=== PATIENT | male | born 1985 | race Caucasian/White ===

== ENCOUNTER 2018-11-20 14:06 | Emergency (ER) | payer MEDICAID, SELFPAY ==
[2018-11-20 14:06] VITALS: BP 108/62; PULSE 88; RESP 18; O2SAT 97
[2018-11-20 14:22] VITALS: BP 108/62; PULSE 84; RESP 18; TEMP 36.9; O2SAT 95; BMI 28.1
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
[2018-11-20 15:06] VITALS: BP 109/63
[2018-11-20] MEDS: morphine 8 MG/ML Syringe 6 MG IV (15:31)
[2018-11-20] MEDS: Ondansetron 4 MG/2 ML Vial IV (15:31)
[2018-11-20 16:00] VITALS: BP 120/80; PULSE 85; RESP 16; O2SAT 100
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
== END 2018-11-20 17:16 | disposition home or self-care (01) ==
PROVIDERS: Emergency Provider Emergency Medicine; Family Provider Nurse Practitioner Family; PCP Nurse Practitioner Family
DX: S60.511A Abrasion of right hand, initial encounter (principal); S89.91XA Unspecified injury of right lower leg, initial encounter; V03.90XA Pedestrian on foot injured in collision with car, pick-up truck or van, unspecified whether traffic or nontraffic accident, initial encounter; Y93.9 Activity, unspecified; Y92.9 Unspecified place or not applicable; Y99.9 Unspecified external cause status; Z72.0 Tobacco use
CPT/HCPCS: 70450; 71260; 72125; 73130; 73502; 73564; 73590; 74177; 96374; 96375; 99285; J7030; Q9967; A4216; J2405

== ENCOUNTER 2019-02-15 15:52 | Emergency (ER) | payer SELFPAY ==
[2019-02-15 15:54] VITALS: BP 123/78; PULSE 107; RESP 12; TEMP 36.3; O2SAT 96; BMI 22.5
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
[2019-02-15 18:06] VITALS: BP 120/78; PULSE 86; RESP 16; O2SAT 100
[2019-02-15] MEDS: Diphth,Pertuss(Acell),Tet Vac 0.5 ML Vial IM (18:15)
[2019-02-15] MEDS: Cephalexin 250 MG Capsule 500 MG PO (18:16)
== END 2019-02-15 18:38 | disposition home or self-care (01) ==
LOC: ED 18:30
PROVIDERS: Emergency Provider Emergency Medicine; Referring Provider Nurse Practitioner Family
DX: L03.116 Cellulitis of left lower limb (principal); M79.89 Other specified soft tissue disorders; S80.812A Abrasion, left lower leg, initial encounter; S80.811A Abrasion, right lower leg, initial encounter; X58.XXXA Exposure to other specified factors, initial encounter; Y93.01 Activity, walking, marching and hiking; Y92.821 Forest as the place of occurrence of the external cause; Y99.9 Unspecified external cause status; Z23 Encounter for immunization; M54.9 Dorsalgia, unspecified; R51 Headache; Z72.0 Tobacco use
CPT/HCPCS: 90471; 90715; 99283

== ENCOUNTER 2019-02-20 07:45 | Emergency (ER) | payer SELFPAY ==
[2019-02-20 07:45] VITALS: BP 105/69; PULSE 77; RESP 18; TEMP 37.2; O2SAT 98; BMI 24.7
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
--- NOTE | 2019-02-20 08:03 | VDLE_ITS ---
Reason For Study: swelling Procedure LEFT Exam performed portable in ED. GSV is normal. The exam was diagnostic. CFV is compressible, spontaneous, phasic, A preliminary report was called and/or faxed competent, and demonstrates normal to Dr. Hart. augmentation. FV is compressible, spontaneous, phasic, competent and demonstrates normal augmentation. POP V is compressible, spontaneous, phasic, competent and demonstrates normal augmentation. T/P Trunk is compressible. PTV is compressible. LT PerV is compressible. Interpretation Summary There is no evidence of left lower extremity deep vein thrombosis. Left great saphenous vein appears patent and compressible segmentally. Ordering Physician: Yanni Hart Performed By: Costa Holland RVT
--- NOTE | 2019-02-20 08:05 | ED.DCSUM_ITS ---
History of Present Illness Chief Complaint: Lower Extremity Injury Informant: Patient Onset: Days - 4 Context: Gradual Onset Timing: Continuous Current Severity: Severe Maximum Severity: Severe Narrative: Patient is a 33-year-old male with history of achalasia and arrhythmia stenting with worsening left lower leg and ankle pain. Patient was evaluated in our ED 2 days ago where he was diagnosed with cellulitis of his left lower leg. Patient started on Keflex at this time. Patient states he has had 4 doses of his Keflex. Last night he went to work where he does a lot of standing and walking. He notes he had worsening pain as well subjective fever, nausea and vomiting. The pain is continued to worsen so he came back to the emergency room. Patient denies any trauma to his lower extremity. Denies any history of blood clots, pulmonary embolism, DVT. He denies any associated chest pain or shortness of breath. States the pain is worse especially with any slight movement of his ankle (especially flexion) and walking. History of gout. He admits to tobacco use denies any alcohol or illicit drug use. Past Medical History - Allergies and Home Meds Allergies/Adverse Reactions: Allergies No Known Allergies Allergy (Verified 02/20/19 07:48) Primary Care Physician: Blanca Zendejas [Primary Care Provider] - Past Medical History: - - Achalasia, arrhythmia Surgical History: noncontributory Smoking Status: Current every day smoker Review of Systems All systems negative except as indicated General: Reports: Chills, Malaise, Subjective - Fever, Sweats Gastrointestinal: Reports: Nausea, Vomiting Musculoskeletal: Reports: Arthralgias - Left ankle, Extremity Pain - Left ankle and lower leg Skin: Reports: Rash - Redness at left ankle Physical Exam Vital Signs/Narrative: Vital Signs Temp Pulse Resp BP Pulse Ox 02/20/19 07:45 98.9 F 77 18 105/69 98 Inital Vital Signs reviewed: Yes General: Well nourished, Well developed, No Acute Distress Head: Normocephalic, Atraumatic Eyes: Perrl, EOMI ENT: Moist mucous membranes, No rhinorrhea Neck: Supple, Nontender Cardiovascular: Regular rate, Regular rhythm, No murmurs Respiratory: No distress, CTA bilaterally, Chest nontender Abdomen: Soft, Nontender, Nondistended, Normal bowel sounds Back: Nontender, Normal Inspection Extremities: Tenderness - Diffusely at the left ankle/distal left leg with even slight palpation or short arc range of motion in all directions but most pronounced with flexion and extension, Edema, - - Sweet test normal, No crepitus, compartments are soft, no asher tenderness . Negative for: Calf Tenderness Neurological: Alert, Oriented x3, Cranial nerves II-XII grossly intact, Normal Strength, Normal Sensation Psychological: Normal affect, Normal Mood Diagnostic/Tx/Re-eval Diagnostic Data Ankle X-Ray 02/20/19 08:02 IMPRESSION: No acute abnormality is seen. Electronically Signed: Sg Pemberton, at 9:08 EDT , Service support , Laboratory Results - last 24 hr 02/20/19 02/20/19 08:40 08:40 WBC 8.6 RBC 4.13 L Hgb 13.1 Hct 38.6 L MCV 93.5 MCH 31.7 MCHC 33.9 RDW Std Deviation 41.1 RDW Coeff of Heidi 11.9 Plt Count 181 MPV 10.2 Immature Gran % (Auto) 0.200 Neut % (Auto) 72.8 H Lymph % (Auto) 14.8 L [place] % (Auto) 7.1 Eos % (Auto) 4.4 Baso % (Auto) 0.7 Absolute Neuts (auto) 6.3 Absolute Lymphs (auto) 1.28 Nucleated RBC % 0 ESR 3 Sodium 143 Potassium 3.9 Chloride 106 Carbon Dioxide 31.0 Anion Gap 6 BUN 11 Creatinine 1.06 Estim Creat Clear Calc 75.12 Est GFR (MDRD) Af Amer 102 Est GFR (MDRD) Non-Af 84 BUN/Creatinine Ratio 10.4 Glucose 102 Uric Acid 5.2 Calcium 8.8 C-React Prot Ext Range 3.80 H - Medical Decision Making Evaluated for worsening atraumatic left ankle pain, redness and swelling. Patient does have some short arc range of motion but I do not suspect septic joint. Gout is a possibility as well as cellulitis. Patient is currently on Keflex. Will add Bactrim as well. Work-up is largely unremarkable in the emergency room. He is neurovascularly intact. Inflammatory markers mildly elevated but not significantly. Patient treated with Toradol does have improvement of his pain. Discussed the case with podiatry, Dr. Martins. She recommends adding a course of steroids as well as antibiotics. Time I am not concerned for compartment syndrome, septic arthritis or necrotizing fasciitis. Patient is placed in an Aircast will follow-up outpatient with podiatry. He is given a work note for tomorrow. Patient is counseled on signs and symptoms requiring return to emergency room. He verbalizes agreement understand this plan. Discharged home in stable condition. ED Disposition - Plan for ED Patient: Disposition: Home or Assisted Living Diagnosis: Acute left ankle pain Instructions: Gouty Arthritis, Cellulitis Prescriptions: Smz/Tmp Ds [Bactrim Ds] 1 tab PO BID #14 tab Prescription Printed Ibuprofen [Motrin] 600 mg PO Q8H PRN PRN #20 tab PRN Reason: Pain Prescription Printed Prednisone 40 mg PO DAILY #8 tab Prescription Printed Referrals: [facility] Martine,Blanca Elena [Primary Care Provider] - Charo Gould [STAFF PHYSICIAN] - Additional Instructions: Please take all the medications prescribed to you. Return if you have worsening symptoms especially fever, spreading redness or inability to walk. Is not clear at this time if this is an infection that needs further antibiotics, gout or another pathology. This is why it is important that you follow-up with the lead informatica developer in the next day or 2.
[2019-02-20 08:33] VITALS: BP 95/76; PULSE 68; RESP 16; TEMP 36.9; O2SAT 99
[2019-02-20] MEDS: Ketorolac 15 MG/ML Vial IV (08:37)
[2019-02-20 08:49] LABS: Absolute Lymphocyte Count 1.28 X10^3/uL (0.83-4.51); Absolute Neutrophil Count 6.3 X10^3/uL (2.0-7.7); Basophil# 0.06 X10^3/uL; Basophil% 0.7 % (0-1); Eosinophil# 0.38 X10^3/uL; Eosinophils% 4.4 % (0-5); Hematocrit 38.6 % (40-54); Hemoglobin 13.1 g/dL (13.0-16.5); Lymphocyte # 1.28 X10^3/ul (4.0); Lymphocyte % 14.8 % (19-41); Mean Corp Hgb Conc 33.9 g/dL (32-36); Mean Corpuscular Hgb 31.7 pg (27.0-32.0); Mean Corpuscular Volume 93.5 fL (80-94); Mean Platelet Vol. 10.2 fl (6.2-12.0); Monocyte# 0.61 X10^3/uL; Monocyte% 7.1 % (0-10); NRBC Flagged by Analyzer 0 % (0-5); Neutrophil # 6.29 X10^3/uL (2.7-7.7); Neutrophil % 72.8 % (47-70); Platelet Count 181 K/mm3 (150-450); RBC Distribution Width CV 11.9 % (11.6-14.6); RBC Distribution Width SD 41.1 fl (35.1-43.9); Red Blood Count 4.13 M/mm3 (4.6-6.2); White Blood Count 8.6 K/mm3 (4.4-11.0)
[2019-02-20 09:05] LABS: Anion Gap 6 (5-15); BUN 11 mg/dL (7-18); BUN/Creat Ratio 10.4 RATIO (10-20); Calcium,Total 8.8 mg/dL (8.5-10.1); Chloride 106 mmol/L (98-107); Creatinine, Serum 1.06 mg/dL (0.70-1.30); EST Glomerular Filtration Rate 84 mL/min (>60); Erythrocyte Sedimentation Rate 3 mm/hr (0-15); Est Glom Filt Rate - Afr Amer 102 mL/min (>60); Estimated Creatinine Clearance 75.12 ml/min; Glucose 102 mg/dL (74-106); Potassium 3.9 mmol/L (3.5-5.1); Sodium Level 143 mmol/L (136-145); Uric Acid 5.2 mg/dL (3.5-7.2)
[2019-02-20] MEDS: predniSONE 20 MG Tablet 60 MG PO (09:37)
[2019-02-20 10:15] VITALS: BP 126/77; PULSE 62; RESP 15; O2SAT 98
== END 2019-02-20 10:16 | disposition home or self-care (01) ==
PROVIDERS: Emergency Provider Emergency Medicine
DX: M25.572 Pain in left ankle and joints of left foot (principal); M25.472 Effusion, left ankle; M79.89 Other specified soft tissue disorders; R11.2 Nausea with vomiting, unspecified; M10.9 Gout, unspecified; K22.0 Achalasia of cardia; F17.200 Nicotine dependence, unspecified, uncomplicated; Z79.899 Other long term (current) drug therapy
CPT/HCPCS: 73610; 80048; 84550; 85025; 85652; 86140; 93971; 96374; 99284; A4216

== ENCOUNTER 2019-12-16 01:08 | Emergency (ER) | payer MEDICAID, SELFPAY ==
[2019-12-16 01:10] VITALS: BP 126/106; PULSE 68; RESP 16; TEMP 36.1; O2SAT 100; BMI 23.8
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
[2019-12-16] MEDS: Ondansetron ODT 4 MG Tablet PO (01:56)
[2019-12-16 03:50] VITALS: RESP 16
== END 2019-12-16 03:51 | disposition home or self-care (01) ==
PROVIDERS: Emergency Provider Student in an Organized Health Care Education/Training Program
DX: S06.0X0A Concussion without loss of consciousness, initial encounter (principal); S01.01XA Laceration without foreign body of scalp, initial encounter; Y04.2XXA Assault by strike against or bumped into by another person, initial encounter; Y93.9 Activity, unspecified; Y92.9 Unspecified place or not applicable; Y99.9 Unspecified external cause status; F17.200 Nicotine dependence, unspecified, uncomplicated
CPT/HCPCS: 12002; 70450; 99283

== ENCOUNTER 2020-01-07 18:37 | Emergency (ER) | payer MEDICAID, SELFPAY ==
[2020-01-07 18:38] VITALS: BP 106/74; PULSE 86; RESP 20; TEMP 36.4; O2SAT 97; BMI 23.5
[2020-01-07 19:56] VITALS: BP 106/74; PULSE 86; RESP 16; TEMP 36.4; O2SAT 97
== END 2020-01-07 19:57 | disposition left against medical advice (07) ==
LOC: ED 19:43
PROVIDERS: Emergency Provider Emergency Medicine
DX: R06.02 Shortness of breath (principal)

== ENCOUNTER 2020-05-24 21:15 | Emergency (ER) | payer MEDICAID, SELFPAY ==
[2020-05-24 21:16] VITALS: BP 125/65; PULSE 81; RESP 18; TEMP 36.4; O2SAT 95; BMI 23.0
--- NOTE | 2020-05-24 21:31 | ED.DCSUM_ITS ---
History of Present Illness Chief Complaint: Abd Pain Informant: Patient Onset: Today Current Severity: Mild Maximum Severity: Moderate Narrative: Patient presents with nausea and vomiting. Patient states he felt well earlier in the day. Tonight after eating dinner he became nauseated and developed upper abdominal pain. He states he went outside where it was cool and vomited. The first 2 episodes of emesis he regurgitated what he had eaten. The third episode of vomiting was blood. He reports only mild nausea at this time. He states he did get sweaty and clammy. He denies any significant past medical history. He denies any excessive use of aspirin or known history of ulcer disease. Past Medical History - Allergies and Home Meds Allergies/Adverse Reactions: Allergies No Known Allergies Allergy (Verified 05/24/20 21:18) Primary Care Physician: Care Physician,No Primary [Primary Care Provider] - Past Medical History: None Surgical History: noncontributory Smoking Status: Current every day smoker Review of Systems General: Denies: Chills, Fever Eyes: Denies: Visual changes - bilaterally ENT: Denies: Bilateral ear pain Cardiovascular: Denies: Chest pain Respiratory: Denies: Dyspnea, Cough Gastrointestinal: Reports: Abdominal pain, Nausea, Vomiting, - - Hematemesis Genitourinary: Denies: Dysuria Musculoskeletal: Denies: Swelling, Extremity Pain Skin: Denies: Rash Hematologic: Denies: Easy bruising, Easy bleeding Allergy: Denies: Uticaria Physical Exam Vital Signs/Narrative: Vital Signs Temp Pulse Resp BP Pulse Ox 05/24/20 21:16 97.6 F L 81 18 125/65 H 95 Inital Vital Signs reviewed: Yes General: Well nourished, Well developed Head: Normocephalic ENT: Moist mucous membranes Neck: Supple Cardiovascular: Regular rate, Regular rhythm Respiratory: No distress, CTA bilaterally Abdomen: Soft, Tender - Minimal epigastric tenderness. No guarding or rebound. Skin: Normal color Neurological: Alert, Oriented x3 Psychological: Normal affect Diagnostic/Tx/Re-eval Laboratory Results 05/24/20 05/24/20 05/24/20 21:45 21:45 21:45 WBC 16.3 H RBC 5.47 Hgb 17.3 H Hct 51.1 MCV 93.4 MCH 31.6 MCHC 33.9 RDW Std Deviation 41.8 RDW Coeff of Heidi 12.1 Plt Count 242 MPV 10.5 Immature Gran % (Auto) 0.400 Neut % (Auto) 84.4 H Lymph % (Auto) 5.0 L [place] % (Auto) 8.6 Eos % (Auto) 1.2 Baso % (Auto) 0.4 Absolute Neuts (auto) 13.8 H Absolute Lymphs (auto) 0.81 L Nucleated RBC % 0 PT 12.8 INR 1.0 APTT 20.4 L Sodium 139 Potassium 4.7 Chloride 105 Carbon Dioxide 28.0 Anion Gap 6 BUN 21 H Creatinine 1.27 Estim Creat Clear Calc 64.09 Est GFR (MDRD) Af Amer 82 Est GFR (MDRD) Non-Af 68 BUN/Creatinine Ratio 16.5 Glucose 103 Calcium 9.4 Total Bilirubin 0.60 Direct Bilirubin 0.14 AST 22 ALT 26 Alkaline Phosphatase 95 Total Protein 8.2 Albumin 4.3 Globulin 3.9 Lipase 72 L - Medical Decision Making Patient is given a liter IV fluids, Zofran, and Protonix. Blood work is reviewed. Patient does have an elevated white count which I suspect is reaction from his vomiting episode. Hemoglobin is actually high. BUN is only minimally elevated. My suspicion is that he has a small More-Jones tear from his vomiting as the first 2 episodes of vomiting did not contain any blood. Patient will be given antacid medication along with nausea meds for home. He will be referred to surgery for follow-up for scope if not improving. ED Disposition - Plan for ED Patient: Disposition: Home or Assisted Living Diagnosis: Vomiting, More-Jones tear Instructions: ED Vomiting (Adult), Mroe-Jones Tear Prescriptions: Omeprazole [Prilosec] 20 mg PO DAILY #30 cap Transmission Status: Pending to [facility] Ondansetron [Zofran Odt] 4 mg PO Q8H PRN PRN #10 tab PRN Reason: Nausea Transmission Status: Pending to [facility] Referrals: Jonathan Wallace MD [STAFF PHYSICIAN] - As Needed Additional Instructions: If you note continued pain, please follow-up with surgery as listed for possible scope to evaluate the lining of your stomach.
[2020-05-24 21:49] LABS: Absolute Lymphocyte Count 0.81 X10^3/uL (0.83-4.51); Absolute Neutrophil Count 13.8 X10^3/uL (2.0-7.7); Basophil# 0.06 X10^3/uL; Basophil% 0.4 % (0-1); Eosinophil# 0.19 X10^3/uL; Eosinophils% 1.2 % (0-5); Hematocrit 51.1 % (40-54); Hemoglobin 17.3 g/dL (13.0-16.5); Lymphocyte # 0.81 X10^3/ul (4.0); Mean Corp Hgb Conc 33.9 g/dL (32-36); Mean Corpuscular Hgb 31.6 pg (27.0-32.0); Mean Corpuscular Volume 93.4 fL (80-94); Mean Platelet Vol. 10.5 fl (6.2-12.0); Monocyte% 8.6 % (0-10); NRBC Flagged by Analyzer 0 % (0-5); Neutrophil # 13.79 X10^3/uL (2.7-7.7); Neutrophil % 84.4 % (47-70); Platelet Count 242 K/mm3 (150-450); RBC Distribution Width CV 12.1 % (11.6-14.6); RBC Distribution Width SD 41.8 fl (35.1-43.9); Red Blood Count 5.47 M/mm3 (4.6-6.2); White Blood Count 16.3 K/mm3 (4.4-11.0)
[2020-05-24] MEDS: Ondansetron 4 MG/2 ML Vial IV (22:03)
[2020-05-24] MEDS: 0.9% Normal Saline 1,000 ML 1000 ML IV (22:03)
[2020-05-24 22:07] LABS: Prothrombin Time (Protime)PT. 12.8 SECONDS (11.7-14.9)
[2020-05-24 22:12] LABS: Partial Thromboplast Time 20.4 Seconds (24.1-36.2)
[2020-05-24 22:13] LABS: AST(SGOT) 22 U/L (15-37); Alanine Aminotransfer ALT/SGPT 26 U/L (16-61); Albumin, Serum 4.3 g/dL (3.2-5.0); Alkaline Phosphatase 95 U/L (45-117); Anion Gap 6 (5-15); BUN 21 mg/dL (7-18); BUN/Creat Ratio 16.5 RATIO (10-20); Bilirubin, Direct 0.14 mg/dL (0.00-0.30); Calcium,Total 9.4 mg/dL (8.5-10.1); Chloride 105 mmol/L (98-107); Creatinine, Serum 1.27 mg/dL (0.70-1.30); EST Glomerular Filtration Rate 68 mL/min (>60); Est Glom Filt Rate - Afr Amer 82 mL/min (>60); Estimated Creatinine Clearance 64.09 ml/min; Globulin 3.9 g/dL (2.2-4.2); Glucose 103 mg/dL (74-106); Lipase 72 U/L (73-393); Potassium 4.7 mmol/L (3.5-5.1); Protein, Total 8.2 g/dL (6.4-8.2); Sodium Level 139 mmol/L (136-145)
[2020-05-24 22:44] VITALS: BP 100/65; PULSE 85; RESP 15; O2SAT 100
[2020-05-24 22:48] VITALS: BP 100/65; PULSE 80; RESP 15; O2SAT 100
== END 2020-05-24 23:01 | disposition home or self-care (01) ==
PROVIDERS: Emergency Provider Emergency Medicine
DX: R11.2 Nausea with vomiting, unspecified (principal); K22.6 Gastro-esophageal laceration-hemorrhage syndrome; R10.10 Upper abdominal pain, unspecified; F17.200 Nicotine dependence, unspecified, uncomplicated
CPT/HCPCS: 80048; 80076; 83690; 85025; 85610; 85730; 96361; 96365; 96375; 99284; J7030; A4216; J2405

== ENCOUNTER 2021-09-02 04:36 | Emergency (ER) | payer MEDICAID, SELFPAY ==
[2021-09-02 04:37] VITALS: BP 116/73; PULSE 75; RESP 16; TEMP 36.8; O2SAT 96; BMI 25.2
[2021-09-02] MEDS: Fluorescein 1 MG STRIP 1 STRIP EACH EYE (05:05)
[2021-09-02] MEDS: Tetracaine 0.5% Ophthalmic Bottle 1 DRP EACH EYE (05:05)
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
[2021-09-02] MEDS: Erythromycin Base 1 OPTH.TUBE 1 APPLIC EACH EYE (05:43)
[2021-09-02] MEDS: oxyCODONE 5 MG Tablet 10 MG PO (05:43)
== END 2021-09-02 05:47 | disposition home or self-care (01) ==
PROVIDERS: Emergency Provider Emergency Medicine; Visit Provider Emergency Medicine
DX: S05.01XA Injury of conjunctiva and corneal abrasion without foreign body, right eye, initial encounter (principal); S05.02XA Injury of conjunctiva and corneal abrasion without foreign body, left eye, initial encounter; X58.XXXA Exposure to other specified factors, initial encounter; Y99.0 Civilian activity done for income or pay; F17.210 Nicotine dependence, cigarettes, uncomplicated
CPT/HCPCS: 99282

== ENCOUNTER → 2022-03-02 | Outpatient (CLI) | payer MEDICAID, SELFPAY ==
[2022-03-02 12:18] LABS: Absolute Lymphocyte Count 2.19 X10^3/uL (0.83-4.51); Absolute Neutrophil Count 4.2 X10^3/uL (2.0-7.7); Basophil# 0.07 X10^3/uL; Basophil% 0.9 % (0-1); Eosinophil# 0.41 X10^3/uL; Eosinophils% 5.4 % (0-5); Hematocrit 45.6 % (40-54); Lymphocyte # 2.19 X10^3/ul (0.83-4.51); Lymphocyte % 29.1 % (19-41); Mean Corp Hgb Conc 32.9 g/dL (32-36); Mean Corpuscular Hgb 31.9 pg (27.0-32.0); Mean Platelet Vol. 11.2 fl (6.2-12.0); Monocyte# 0.57 X10^3/uL; Monocyte% 7.6 % (0-10); NRBC Flagged by Analyzer 0 % (0-5); Neutrophil # 4.24 X10^3/uL (2.7-7.7); Neutrophil % 56.3 % (47-70); Platelet Count 226 K/mm3 (150-450); RBC Distribution Width CV 12.7 % (11.6-14.6); RBC Distribution Width SD 45.1 fl (35.1-43.9); White Blood Count 7.5 K/mm3 (4.4-11.0)
[2022-03-02 13:33] LABS: ALB/GLOB Ratio 1.1 RATIO (0.9-2.4); AST(SGOT) 28 U/L (15-37); Alanine Aminotransfer ALT/SGPT 38 U/L (16-61); Albumin, Serum 4.1 g/dL (3.2-5.0); Alkaline Phosphatase 94 U/L (45-117); Anion Gap 6 (5-15); BUN 14 mg/dL (7-18); BUN/Creat Ratio 11.2 RATIO (10-20); Chloride 104 mmol/L (98-107); Cholesterol 201 mg/dL (200); Creatinine, Serum 1.25 mg/dL (0.70-1.30); EST Glomerular Filtration Rate 68 mL/min (>60); Est Glom Filt Rate - Afr Amer 83 mL/min (>60); Globulin 3.9 g/dL (2.2-4.2); Glucose 85 mg/dL (74-106); High Density Lipoprotein 72 mg/dL; Potassium 4.8 mmol/L (3.5-5.1); Sodium Level 140 mmol/L (136-145); Thyroid Stim Hormone (TSH) 3.05 uIU/mL (0.358-3.74); Triglycerides 42 mg/dL; Very Low Density Lipoprotein 8 mg/dL (5-40)
== END | disposition home or self-care (01) ==
LOC: BIMLAB 09:00
PROVIDERS: PCP Nurse Practitioner Family; Referring Provider Nurse Practitioner Family; Visit Provider Nurse Practitioner Family
DX: Z00.00 Encounter for general adult medical examination without abnormal findings (principal)
CPT/HCPCS: 36415; 80053; 80061; 84443; 85025

== ENCOUNTER → 2022-03-23 | Outpatient (CLI) | payer MEDICAID, SELFPAY ==
--- NOTE | 2022-03-23 13:48 | STRESSREP ---
Stress Test Report Date: 03-23-2022 Procedure: Exercise tolerance test Indications: Chest pain Consent: Per the patient Procedure: The patient exercised on a Zakc protocol for 9 minutes and 17 seconds completing Stage III and 17 seconds of Stage IV achieving a peak heart rate of 160 bpm (87% predicted maximal heart rate) with a resting blood pressure of 98/64 mmHg and a peak blood pressure 140/70 mmHg and a peak MET capacity of approximately 11 MET's. The baseline ECG demonstrated normal sinus rhythm. The peak exercise ECG demonstrated no obvious ECG changes. There were no cardiac dysrhythmias pretest, during exercise, or recovery. The functional capacity was considered good. The patient had no complaint of chest discomfort during exercise or recovery. The examination was discontinued secondary to dyspnea; leg discomfort; stabbing pain . Impression: 1. Technically adequate (percent predicted maximal heart rate greater than 85%) exercise tolerance test 2. Peak exercise ECG with no obvious ECG changes 3. There were no cardiac dysrhythmias during exercise or recovery This note was generated with [employer] software. It may contain incorrect words, spelling, and punctuation that were not noted in checking the note before signing.
== END | disposition home or self-care (01) ==
LOC: CVS 11:58
PROVIDERS: PCP Nurse Practitioner Family; Referring Provider Nurse Practitioner Family; Visit Provider Nurse Practitioner Family
DX: R07.9 Chest pain, unspecified (principal)
CPT/HCPCS: 93017

== ENCOUNTER 2022-08-14 22:49 | Emergency (ER) | payer MEDICAID, SELFPAY ==
[2022-08-14 22:51] VITALS: BP 119/89; PULSE 89; RESP 18; TEMP 36.1; O2SAT 98; BMI 23.9
--- NOTE | 2022-08-14 23:34 | EDS_ITS ---
HPI History of Present Illness Chief Complaint: Back Narrative Narrative: 37-year-old male presenting with left hip and left gluteal muscle spasm. He states that he played football today and while he was running he noted that it became very tight. He states he sat down for 20 minutes and the symptoms resolved. He did not have any problems throughout the day. He states that when he laid down to sleep tonight it went into spasm and it hurts from the left lower back down the side of his leg and gluteal region to the posterior thigh. He states he was unable to sleep. Denies any direct trauma. No loss of bladder bowel control no saddle anesthesia paresthesia. [facility] Medical History Achalasia Bipolar disorder Chest pain Erectile dysfunction PTSD (post-traumatic stress disorder) Home Medications sildenafil 50 mg tablet 50 mg PO DAILY PRN sexual activity #30 tabs 07/30/22 [Rx Last Taken Unknown] naproxen 500 mg tablet (Naprosyn) 500 mg PO BID PRN pain #20 tabs 08/14/22 [Rx Last Taken Unknown] tizanidine 4 mg capsule 4 mg PO Q8H PRN muscle spasticity #14 caps 08/14/22 [Rx Last Taken Unknown] Allergy/AdvReac Type Severity Reaction Status Date / Time No Known Allergies Allergy Verified 08/14/22 22:50 Family History Mother Cervical cancer Depression Father Depression Diabetes Myocardial infarction, Onset Age: 35 Other Melanoma Social History Smoking Status: Current every day smoker tobacco type: cigarettes alcohol intake: never substance use type: marijuana ROS ROS ED Constitutional Constitutional ED: Denies chills, fever(s) or sweats Eyes Eyes: Denies blurry vision or change in vision ENT ENT ED: Denies ear pain or sore throat Cardiovascular Cardiovascular: Denies chest pain, palpitations or racing heartbeat Respiratory/Chest Respiratory/Chest: Denies cough, dyspnea or sputum Gastrointestinal Gastrointestinal: Denies abdominal pain, constipation, diarrhea, nausea or vomiting Genitourinary Genitourinary ED: Denies dysuria, hematuria or urinary frequency Musculoskeletal Musculoskeletal: Reports back pain and other Details: Left gluteal and left thigh pain ; Denies arthralgias Integumentary Denies abscess, Abrasions or rash Neurologic Neurologic: Denies headache(s), paresthesias or weakness Psychiatric Psychiatric: Denies anxiety, depression, suicidal ideation or suicidal thoughts Endocrine Endocrinology: Denies polydipsia or polyuria EXAM Physical Exam Const Vital Signs: 08/14/22 22:51 Temperature 97.0 F L Temperature Source Temporal Pulse Rate 89 Respiratory Rate 18 Blood Pressure 119/89 H Blood Pressure Mean 99 Pulse Ox 98 Oxygen Delivery Method Room Air Positive well nourished General Appearance ED: NAD HEENT Reports moist mucous membranes Eyes PERRL Resp normal respiratory effort Cardio regular rate and regular rhythm Back/Spine Back/Spine Narrative: Tenderness palpation left lumbar paraspinal musculature and into the left gluteal region there is also tenderness in the left hamstring and lateral aspect of the left thigh. No bony tenderness. No rash, erythema. No bruising. Neuro oriented x3 Psych mental status grossly normal Skin no rashes or lesions noted and no wounds MDM MDM MDM Narrative Medical decision making narrative: Patient was given a shot of Toradol. I think that muscle relaxers would benefit him but he is driving he does not have a ride. I will give him prescription for Naprosyn and Zanaflex for home. I will have these filled here at the hospital she can take him home. He is counseled on alternating ice and heat as well as stretching exercises. Return precautions were discussed. Impression: 1. Lumbar strain 2. Leg spasm Discharge Plan Triage Chief Complaint: Back ED Provider: Joe Knox Dx/Rx/DC Orders Instructions: ED Back Spasm, No Trauma, ED Muscle Spasm Prescriptions: New tizanidine 4 mg capsule 4 mg PO Q8H PRN (Reason: muscle spasticity) Qty: 14 0RF naproxen [Naprosyn] 500 mg tablet 500 mg PO BID PRN (Reason: pain) Qty: 20 0RF No Action sildenafil 50 mg tablet 50 mg PO DAILY PRN (Reason: sexual activity) Qty: 30 1RF Rx Instructions: administer 30 minutes to 4 hours before activity Primary Care Provider: Deng Mercado NP Referrals: Deng Mercado NP, [employer] [Primary Care Provider] - Disposition Disposition: Home, Self Care
[2022-08-14] MEDS: Ketorolac 15 MG/ML Vial IM (23:37)
== END 2022-08-15 00:15 | disposition home or self-care (01) ==
PROVIDERS: Emergency Provider Student in an Organized Health Care Education/Training Program; PCP Nurse Practitioner Family; Visit Provider Student in an Organized Health Care Education/Training Program
DX: S39.012A Strain of muscle, fascia and tendon of lower back, initial encounter (principal); M62.838 Other muscle spasm; X58.XXXA Exposure to other specified factors, initial encounter; Y93.61 Activity, american tackle football
CPT/HCPCS: 96372; 99282

== ENCOUNTER 2022-11-04 09:23 | Outpatient (RCR) | payer MEDICAID, SELFPAY ==
--- NOTE | 2022-11-04 09:53 | BH.MDN_ITS ---
Multi-Disciplinary Note - Note 30-min Individual Time Started:: 08:50 Date: 11/04/22 Purpose of session/treatment goals addressed:: To gather information on pt's current stressors, symptoms, triggers, and tx goals. Another goal was to build rapport and provide emotional support. Eye Contact:: Good Motor Activity:: Restless Appearance:: Casual Speech:: Appropriate Mood:: Irritable, Depressed Affect:: Congruent Thoughts:: Linear, Logical, No evidence of hallucinations/delusions noted Staff Interventions:: motivational interviewing, rapport building, strengths perspective, treatment planning, goal setting Client Response:: Pt first day of IOP tx. Receptive of session and actively engaged throughout. Reports feeling hopeful about the program and is looking forward to developing healthier skills for managing his emotions and improving current interpersonal relationships. Pt discuss some of his history and what led to seeking more intensive tx. Shared he has been working with a counselor at [facility], as well as seeing Dr. Hudson for outpatient psychiatry; however, feels he is in need of more intensive tx at this time. Primary stressors identified as his relationship with his and children, supporting his with her own mental health needs, coping with unresolved grief associated with his father?s in 2018, as well as managing his bipolar diagnosis. Pt shared that his home life is very chaotic and often unpredictable which he finds to be very stressful and contributes to difficulties in maintaining emotionally stable. Described himself as an ?empath? and noted he often takes on his ?s emotions which tends to further escalate conflict situations. Pt shared that he has custody of 2 of his 5 children, though his 14-year-old son recently expressed a desire to move in with his mother due to not getting along with pt?s . Noted this as an additional stressor. Identified wanting to learn healthier ways to manage his emotions, navigate conflict, and learn to accept and cope with the loss of his father who pt describes as his primary support person. Risks/Concerns:: Pt admits to having suicidal ideations with thoughts of overdosing in the past, but denies any plan or intent within the last month. Future oriented and multiple protective factors. Pt has history of 3 previous attempts in 2003, 2008, ans 2010. Pt denies any HI. Progress Toward Goals/Plan:: Pt's first day of IOP tx and pt reports feeling hopeful about the program. No progress to document yet. Pt presents with symptoms of depression that have been worsening over the past several months. Pt has history of mood instability, anhedonia, chronic suicidal ideations, and irritability. Pt is connected with outpatient counseling through [facility] and psychiatry services through Dr. Hudson. Pt will continue IOP tx to prevent decompensation, improve daily functioning, and increase knowledge of healthy coping skills. Time Stopped:: 09:15
--- NOTE | 2022-11-04 10:00 | BH.COMM ---
Communication Note - Communication with Client Communication Note: Left IOP early due to family emergency
--- NOTE | 2022-11-09 09:30 | BH.COMM ---
Communication Note - Communication with Client Communication Note: Pt completed initial paperwork. [place] Suicide Screening complete. No significant changes since pre-admission screening. Consulted with Dr. Nguyen with plan to admit to IOP with dx F31.13
--- NOTE | 2022-11-10 14:54 | BH.DS_ITS ---
Discharge Summary - Demographics Date of Admission:: 11/04/22 Discharge Date: 11/10/22 Presenting Problems at Admission:: Client is a 37-year-old male with a history of bipolar II disorder, alcohol abuse disorder, poly-substance use disorder, and sx consistent with PTSD. Client was referred to [facility] tx by his who previously completed the IOP program. At admission to [facility] client endorsed poor sleep, erratic energy, irritability, depression, anxiety about his ?s mental health, low motivation, hopelessness, complicated grief, poor focus, anhedonia, and passive SI. Client reports his marriage and prolonged grief associated with the loss of his father in 2018 are primary stressors. Client's mental health symptoms and ongoing relationship conflicts are significantly impacting his ability to function and develop/maintain relationships with his children and sup ports outside his marriage, as well as have prevented him from maintaining employment. Discharge Diagnoses:: Bipolar II disorder Reason for Discharge:: Client chose to voluntarily discharge from [facility] tx. Client did not present as a threat to himself or others at discharge. Client plans to focus on outpatient counseling and is connected with Dr. Hudson for psychiatry services, as well as [facility] for individual outpatient counseling. - Treatment Progress During Treatment & Response: Limited progress due to client voluntarily discharging for [facility] tx after one day of treatment. Client unable to accomplish treatment goals due to not finishing the program. Client no call/no showed remainder of sessions and therefore discharge resources unable to be provided. Issues Still to be Addressed:: Client's biggest presenting problem at this time is his interpersonal conflict with his . Client also continues to struggle with employment issues, family stress, financial stress, mood instability, and impulsive behaviors. Discharge Recommendations/Instructions:: Client recommended to continue with [facility] for outpatient counseling and support. Client also recommended to continue with Dr. Hudson for ongoing medication management. Discharge Handout: Complete Discharge Handout with client on aftercare options and continuity of care.
== END 2022-11-10 09:45 | disposition home or self-care (01) ==
LOC: BHIOP 09:23
PROVIDERS: PCP Nurse Practitioner Family; Referring Provider Psychiatry & Neurology Psychiatry; Visit Provider Psychiatry & Neurology Psychiatry
DX: F31.81 Bipolar II disorder (principal)
CPT/HCPCS: S9480; 90832

== ENCOUNTER 2023-06-21 14:57 | Emergency (ER) | payer MEDICAID, SELFPAY ==
[2023-06-21 14:58] VITALS: BP 124/81; PULSE 104; RESP 14; TEMP 36.1; O2SAT 100; BMI 25.9
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
--- NOTE | 2023-06-21 15:20 | EDS_ITS ---
HPI History of Present Illness Chief Complaint: Upper Extremity Injury Narrative Narrative: 38-year-old male, [id number], presents with his because of injury to his right hand that he sustained yesterday evening. He states he was angry and upset and punched a wall. At that time he heard a pop and now has pain and not in his proximal right fifth metacarpal. He denies other injury. He presents because the pain that is worse with movement in his right hand. PFSH PFSH Medical History Achalasia Bipolar disorder Chest pain Erectile dysfunction PTSD (post-traumatic stress disorder) Home Medications sildenafil 50 mg tablet 50 mg PO DAILY PRN sexual activity #30 tabs 07/30/22 [Rx Last Taken Unknown] naproxen 500 mg tablet (Naprosyn) 500 mg PO BID PRN pain #20 tabs 08/14/22 [Rx Last Taken Unknown] tizanidine 4 mg capsule 4 mg PO Q8H PRN muscle spasticity #14 caps 08/14/22 [Rx Last Taken Unknown] Allergy/AdvReac Type Severity Reaction Status Date / Time No Known Allergies Allergy Verified 06/21/23 14:58 Family History Mother Cervical cancer Depression Father Depression Diabetes Myocardial infarction, Onset Age: 37 Other Melanoma Social History Smoking Status: Current every day smoker tobacco type: cigarettes alcohol intake: never substance use type: marijuana ROS ROS ED ROS Narrative Constitutional: No fever, no chills. HEENT: No sore throat. No neck pain. No loss of vision. No rhinorrhea. Cardiovascular: No chest pain. No palpitations. No pedal edema. Respiratory: No cough, no shortness of breath. Abdominal: No abdominal pain. No nausea. No vomiting. Genitourinary: No dysuria. No hematuria. Musculoskeletal: No myalgias. Right hand pain. Neurologic: No headaches. No dizziness. No lightheadedness. Skin: No rash. No change in color. Psychiatric: No depression. No anxiety. EXAM Physical Exam Narrative Exam Narrative: Afebrile. Vital signs noted. HEENT: Normocephalic. Atraumatic. PERRL, EOMI. Neck soft and supple. No point tenderness or step off. Cardiovascular: Regular rate and rhythm. No murmurs, rubs, or gallops appreciated. Respiratory: No tachypnea. Lungs clear to auscultation bilaterally. Gastrointestinal: Abdomen soft, nontender, with normoactive bowel sounds. No rebound or guarding. Neurological: Awake. Alert. Nonfocal, nonlateralizing. Skin: No rash. Normal color. No pallor. Musculoskeletal: No pedal edema. Positive tenderness to palpation along the right fifth metacarpal. Mild swelling. No noted ecchymosis. No tenderness to palpation in the right distal radius or ulna. Able to oppose thumb. Ranges of motion of fifth digit on right hand mildly limited secondary to pain. Palpable radial pulse. Const Vital Signs: 06/21/23 14:58 Temperature 97 F L Temperature Source Temporal Pulse Rate 104 H Respiratory Rate 14 Blood Pressure 124/81 H Blood Pressure Mean 95 Pulse Ox 100 Oxygen Delivery Method Room Air MDM MDM MDM Narrative Medical decision making narrative: Concern is for hand contusion versus hand fracture. Patient was given an ice pack and ibuprofen 600 mg orally initially. X-rays were obtained of the right hand in 3 views and interpreted by myself independently. On my independent interpretation I see no evidence of acute fracture. I reviewed the radiology report which confirms my independent interpretation. At this point in time, we will continue ice and elevation and [id number] analgesics as needed. He was referred to a primary care provider. I feel he can be discharged to follow- up. Return instructions reviewed. Disposition is discharged home in stable condition. Discharge Plan Triage Chief Complaint: Upper Extremity Injury ED Provider: Jaya De La Rosa Dx/Rx/DC Orders Clinical Impression: Hand pain, right, Contusion of hand, right Instructions: ED Hand Contusion Prescriptions: No Action tizanidine 4 mg capsule 4 mg PO Q8H PRN (Reason: muscle spasticity) Qty: 14 0RF naproxen [Naprosyn] 500 mg tablet 500 mg PO BID PRN (Reason: pain) Qty: 20 0RF sildenafil 50 mg tablet 50 mg PO DAILY PRN (Reason: sexual activity) Qty: 30 1RF Rx Instructions: administer 30 minutes to 4 hours before activity Primary Care Provider: Care Physician,No Primary Referrals: Naveed Brunner MD [Med Staff - Active Staff] - As Needed Care Physician,No Primary [Primary Care Provider] - Disposition Disposition: Home, Self Care
[2023-06-21] MEDS: Ibuprofen 600 MG Tablet PO (15:32)
[2023-06-21 16:23] VITALS: BP 112/76; PULSE 64; RESP 14; TEMP 36.4; O2SAT 99
== END 2023-06-21 16:26 | disposition home or self-care (01) ==
PROVIDERS: Emergency Provider Emergency Medicine; Visit Provider Emergency Medicine
DX: S60.221A Contusion of right hand, initial encounter (principal); W22.01XA Walked into wall, initial encounter; F17.210 Nicotine dependence, cigarettes, uncomplicated
CPT/HCPCS: 73130; 99282